=== PATIENT | female | born 1960 | race Caucasian/White ===

== ENCOUNTER 2017-03-24 14:34 | Inpatient (IN) | payer OTHER ==
[2017-03-24] MEDS ORDERED: Acetaminophen 500 MG Tab PO PRN (14:56)
[2017-03-24] MEDS ORDERED: Loratadine 10 MG Tab PO PRN (14:56)
[2017-03-24] MEDS ORDERED: Lactated Ringers 1,000 ML IV SCH (15:00)
[2017-03-24] MEDS ORDERED: Acetaminophen 650 MG Supp RECTAL PRN (15:18)
[2017-03-24] MEDS ORDERED: Ondansetron 4 MG/2 ML SDV IV PRN (15:18)
[2017-03-24] MEDS ORDERED: Metoclopramide 10 MG/2 ML SDV IV PRN (15:19)
[2017-03-24] MEDS ORDERED: Naloxone 0.4 MG/ML SDV IV PRN (15:25)
[2017-03-24] MEDS ORDERED: HYDROmorphone/Normal Saline 15 MG/30 ML PCA IV PRN (15:25)
--- NOTE | 2017-03-24 15:57 | PCM.HP ---
H&P History of Present Illness - General Date of Service: 03/24/17 Admit Problem/Dx: Admission Diagnosis/Problem Admission Diagnosis/Problem Partial bowel obstruction Source of Information: Patient - History of Present Illness Initial Comments - Free Text/Narative: Maricruz has had a 2 week history of pain after eating in her left upper quadrant that radiates to left upper back and then throughout the entire abdomen.S She states she eats then will develop pain, nausea, vomiting and diarrhea. The symptoms last for several hours then let up. Maricruz states that she is getting weak and tired. Location: Reports: Abdomen Quality: Reports: Pressure, Sharp, Stabbing, Throbbing Severity: Severe Improves with: Reports: None Worsens with: Reports: Eating Context: Reports: Sick Contact Associated Symptoms: Reports: Loss of Appetite, Malaise, Nausea/Vomiting - Related Data Allergies/Adverse Reactions: Allergies Allergy/AdvReac Type Severity Reaction Status Date / Time No Known Allergies Allergy Verified 10/17/14 08:22 Home Medications: Home Meds Acetaminophen [Tylenol Extra Strength] 500 - 1,000 mg PO Q6H PRN 10/13/14 [ History] Cholecalciferol (Vitamin D3) [Vitamin D3] 2,000 units CHEW DAILY 10/13/14 [ History] Cyanocobalamin (Vitamin B12) [Vitamin B12] 2,500 mcg SL DAILY 10/13/14 [History] Multivitamin [Multiple Vitamins] 1 tab PO DAILY 10/13/14 [History] Acarbose 25 mg PO TID 03/24/17 [History] Past Medical History Other Respiratory History: lung infection Social & Family History - Tobacco Use Smoking Status *Q: Never Smoker Second Hand Smoke Exposure: No - Caffeine Use Caffeine Use: Reports: Coffee Other Caffeine Use: 1 cup per day - Recreational Drug Use Recreational Drug Use: No H&P Review of Systems - Review of Systems: Review Of Systems: See Below General: Reports: Malaise, Weakness, Fatigue, Decreased Appetite, Weight Loss HEENT: Reports: No Symptoms Pulmonary: Reports: No Symptoms Cardiovascular: Reports: No Symptoms Gastrointestinal: Reports: Abdominal Pain, Diarrhea, Decreased Appetite, Distension, Flatus, Nausea, Vomiting Genitourinary: Reports: No Symptoms Musculoskeletal: Reports: No Symptoms Skin: Reports: No Symptoms Psychiatric: Reports: No Symptoms Neurological: Reports: No Symptoms Hematologic/Lymphatic: Reports: No Symptoms Immunologic: Reports: No Symptoms Exam - Exam Exam: See Below - Vital Signs Vital Signs: Last Vital Signs Temp 95.7 F 03/24/17 15:13 Pulse 53 L 03/24/17 15:13 Resp 14 03/24/17 15:13 BP 151/83 H 03/24/17 15:13 Pulse Ox 100 03/24/17 15:13 Weight: 166 lb - Exam Quality Assessment: DVT Prophylaxis General: Alert, Oriented, Moderate Distress, Other (Color pale) HEENT: PERRLA Neck: Supple, Trachea Midline Lungs: Clear to Auscultation, Normal Respiratory Effort Cardiovascular: Regular Rate, Regular Rhythm GI/Abdominal Exam: Distended, Tender (generalized in all 4 quadrants ) (Female) Exam: Deferred Rectal (Female) Exam: Deferred Back Exam: Normal Inspection, Full Range of Motion Extremities: Normal Inspection, Normal Range of Motion Skin: Warm, Dry, Intact Neurological: Cranial Nerves Intact, Reflexes Equal Bilateral Neuro Extensive - Mental Status: Alert, Oriented x3, Normal Mood/Affect Neuro Extensive - Motor, Sensory, Reflexes: CN II-XII Intact, Normal Gait, Normal Reflexes Psychiatric: Alert *Q Meaningful Use (ADM) - VTE *Q VTE Criteria *Q: - Stroke *Q Stroke Criteria *Q: - AMI *Q AMI Criteria *Q: - Problem List (1) Partial small bowel obstruction SNOMED Code(s): 194938242 ICD Code: K56.600 - PARTIAL INTESTINAL OBSTRUCTION, UNSPECIFIED TO CAUSE Status: Acute Current Visit: Yes Problem List Initiated/Reviewed/Updated: Yes Orders Last 24hrs: Active Orders 24 hr Category Date Time Status Admission Status [Patient Status] [ADT] Routine ADT 03/24/17 14:10 Active Intake and Output [RC] QSHIFT Care 03/24/17 15:34 Active Overnight Pulse Oximetry [RC] Click to Edit Care 03/24/17 14:48 Active Up ad Carla [RC] ASDIRECTED Care 03/24/17 15:30 Active Verify Patient Consent Obtain [RC] ASDIRECTED Care 03/25/17 09:00 Active Vital Signs [RC] Q4H Care 03/24/17 15:30 Active Clear Liquid Diet [DIET] Diet 03/24/17 Dinner Active NPO After Midnight [Nothing per Oral After Midnight Diet 03/24/17 Dinner Active Diet] [DIET] AMYLASE [CHEM] Routine Lab 03/24/17 15:34 Ordered CBC W/O DIFF,HEMOGRAM [HEME] Routine Lab 03/24/17 15:30 Ordered CLOSTRIDIUM DIFFICILE BY PCR [RM] Routine Lab 03/24/17 15:35 Uncollected COMPREHENSIVE METABOLIC PN,CMP [CHEM] Routine Lab 03/24/17 15:31 Ordered FERRITIN [CHEM] Routine Lab 03/24/17 15:32 Ordered FOLATE [FOLIC ACID] [CHEM] Routine Lab 03/24/17 15:32 Ordered LIPASE [CHEM] Routine Lab 03/24/17 15:34 Ordered MAGNESIUM [CHEM] Routine Lab 03/24/17 15:31 Ordered PHOSPHORUS [CHEM] Routine Lab 03/24/17 15:31 Ordered VITAMIN B-1, THIAMINE, PLASMA [REF] Routine Lab 03/24/17 15:33 Ordered VITAMIN B12 [CHEM] Routine Lab 03/24/17 15:31 Ordered VITAMIN D,25-HYDROXY [CHEM] Routine Lab 03/24/17 15:32 Ordered Acetaminophen [Tylenol Extra Strength] Med 03/24/17 14:56 Active 500 - 1,000 mg PO Q6H PRN Acetaminophen [Tylenol] Med 03/24/17 15:18 Active 650 mg RECTAL Q4H PRN Dextrose 5%-Lactated Ringers 1,000 ml Med 03/24/17 21:30 Active IV ASDIRECTED Escitalopram [Lexapro] Med 03/25/17 09:00 Active 20 mg PO DAILY HYDROmorphone/Normal Saline [Dilaudid ALL PURPOSE CLERK 15 MG in NS Med 03/24/17 15:25 Active 30 ML] 0 mg IV ASDIRECTED PRN Lactated Ringers [Ringers, Lactated] 1,000 ml Med 03/24/17 15:00 Active IV ASDIRECTED Loratadine [Claritin] Med 03/24/17 14:56 Active 10 mg PO DAILY PRN MVI, Adult with Vitamin K [Infuvite Adult] 10 ml Med 03/24/17 16:00 Active Thiamine [Vitamin B-1] 100 mg Magnesium Sulfate [Magnesium Sulfate 50%] 2 gm Folic Acid 1 mg Lactated Ringers [Ringers, Lactated] 1,000 ml IV ONETIME Metoclopramide [Reglan] Med 03/24/17 15:19 Active 10 mg IV Q6H PRN Naloxone [Narcan] Med 03/24/17 15:25 Active 0.1 mg IV ASDIRECTED PRN Ondansetron [Zofran] Med 03/24/17 15:18 Active 4 mg IV Q4H PRN Pantoprazole [ProTONIX IV] Med 03/24/17 16:00 Active 40 mg IV Q12H cefOXitin [Mefoxin] 2 gm Med 03/25/17 10:00 Active Sodium Chloride 0.9% [Normal Saline] 50 ml IV ONCALL Pulse Oximetry Continuous Monitoring [OM.PC] Routine Oth 03/24/17 14:48 Ordered SCD [Sequential Compression Device] [OM.PC] Routine Oth 03/24/17 15:34 Ordered Code Status [Resuscitation Status] Routine Resus Stat 03/24/17 15:29 Ordered Medication Orders Acetaminophen (Tylenol Extra Strength) 500 - 1,000 mg PO Q6H PRN PRN Reason: Pain Acetaminophen (Tylenol) 650 mg RECTAL Q4H PRN PRN Reason: PAIN/FEVER Escitalopram Oxalate (Lexapro) 20 mg PO DAILY [facility] Hydromorphone HCl (Dilaudid Dehydrogenation Operator 15 Mg In Ns 30 Ml) 0 mg IV ASDIRECTED PRN; Protocol PRN Reason: ALL PURPOSE CLERK PAIN CONTROL Last Admin: 03/24/17 15:42 Dose: 15 mg Lactated Ringer's (Ringers, Lactated) 1,000 mls @ 500 mls/hr IV ASDIRECTED AMOR Stop: 03/24/17 16:59 Last Admin: 03/24/17 15:39 Dose: 500 mls/hr Multivitamins/Minerals 10 ml/Thiamine HCl 100 mg/ Magnesium Sulfate 2 gm/ Folic Acid 1 mg / Lactated Ringer's 1,015.2 mls @ 200 mls/hr IV ONETIME ONE Stop: 03/24/17 21:04 Dextrose/Lactated Ringer's (Dextrose 5%-Lactated Ringers) 1,000 mls @ 150 mls/ hr IV ASDIRECTED [facility] Cefoxitin Sodium 2 gm/ Sodium (Chloride) 50 mls @ 100 mls/hr IV ONCALL ONE Stop: 03/25/17 10:29 Loratadine (Claritin) 10 mg PO DAILY PRN PRN Reason: Allergies Metoclopramide HCl (Reglan) 10 mg IV Q6H PRN PRN Reason: N/V Naloxone HCl (Narcan) 0.1 mg IV ASDIRECTED PRN PRN Reason: decreased respiratory rate Ondansetron HCl (Zofran) 4 mg IV Q4H PRN PRN Reason: N/V Pantoprazole Sodium (Protonix Iv) 40 mg IV Q12H AMOR Assessment/Plan Comment:: Assessment: Partial Small Bowel Obstruction Dehydration RNY Gastric Bypass Surgery - Removal of Lap Band and Conversion to RNY - 01/26/15 Postsurgical malabsorption Vitamin B12 Deficiency Vitamin D Deficiency Depression Reactive Hypoglycemia following Gastric Bypass Surgery Plan: Admit to Inpatient Schedule and have consent signed for Exploratory Laparoscopic possible open release of partial small bowel obstruction and possible lysis of adhesions and possible small bowel resection - 03/25/17 - General Anesthesia - Issa Zarco MD Cefoxitin 2 Grams IV OnCall to OR NPO after MN See EMR for the rest of the orders. Elisa Evans 03/24/17
[2017-03-24] MEDS: MVI, Adult with Vitamin K 10 ML, Thiamine 100 MG, Magnesium Sulfate 2 GM, Folic Acid 1 ... IV ONE ×10 (16:02→17:33)
[2017-03-24] MEDS: Pantoprazole 40 MG Vial IV SCH (16:05)
[2017-03-24] MEDS: Potassium Chloride 20 MEQ in Premix Bag 1 BAG IV SCH ×2 (19:54→22:36)
[2017-03-25] MEDS: Pantoprazole 40 MG Vial IV SCH ×2 (03:44→16:05)
[2017-03-25] MEDS: Escitalopram 20 MG Tab PO SCH (09:55)
[2017-03-25] MEDS ORDERED: cefOXitin 2 GM in Sodium Chloride 0.9% 50 ML IV ONE (10:00)
[2017-03-25] MEDS ORDERED: Dexamethasone 4 MG/ML SDV ONE (10:39)
[2017-03-25] MEDS ORDERED: fentaNYL 250 MCG/5 ML SDV ONE ×2 (10:39→14:30)
[2017-03-25] MEDS ORDERED: Ondansetron 4 MG/2 ML SDV ONE (10:39)
[2017-03-25] MEDS ORDERED: Neostigmine Methylsulfate 1 MG/ML 5 ML Syringe ONE (10:39)
[2017-03-25] MEDS ORDERED: Rocuronium 50 MG/5 ML Vial ONE (10:39)
[2017-03-25] MEDS ORDERED: Succinylcholine/Normal Saline 200 MG/10 ML Syringe ONE (10:39)
[2017-03-25] MEDS ORDERED: Propofol 200 MG/20 ML SDV ONE (10:39)
[2017-03-25] MEDS ORDERED: Bupivacaine 0.5%/EPINEPHrine 1:200,000 50 ML MDV ONE (10:42)
[2017-03-25] MEDS: Dextrose 5%-Lactated Ringers 1,000 ML IV SCH ×2 (11:26→17:07)
[2017-03-25] MEDS ORDERED: Lactated Ringers 1,000 ML ONE (13:31)
[2017-03-25] MEDS ORDERED: Ropivacaine 38 ML, Dexamethasone 8 MG, EPINEPHrine 0.4 MG, Sodium Chloride 0.9% 39.6 ML NERVRT SCH ×4 (14:00)
[2017-03-25] MEDS ORDERED: HYDROmorphone 2 MG Tab PO PRN (15:57)
[2017-03-25] MEDS ORDERED: Meperidine PF 100 MG/ML Syringe IM ONE (16:00)
[2017-03-25] MEDS ORDERED: hydrOXYzine HCl 100 MG/2 ML SDV IM ONE (16:00)
--- NOTE | 2017-03-25 16:46 | PN ---
DATE OF SERVICE: 03/25/2017 The patient was admitted overnight with a small bowel volvulus as seen on CT scan done on the . Since that time, she has been having pain when eating. When she is not eating, she does okay and was felt comfortable this morning. Plan will be to proceed with a diagnostic laparoscopy, laparotomy if necessary, and reduction of the volvulus and closure of any mesenteric defects that might be identified. She will possibly need for an open procedure as well as possibly need for bowel resection, and wishes to proceed. Surgery will be undertaken later today. Issa Zarco MD /[id number]
[2017-03-25] MEDS: Acetaminophen 500 MG Tab PO SCH ×2 (17:11→23:00)
[2017-03-25] MEDS: cefOXitin 2 GM in Sodium Chloride 0.9% 50 ML IV SCH (19:59)
[2017-03-26] MEDS: Dextrose 5%-Lactated Ringers 1,000 ML IV SCH ×3 (00:25→18:54)
[2017-03-26] MEDS: Pantoprazole 40 MG Vial IV SCH ×2 (02:59→16:32)
[2017-03-26] MEDS: Acetaminophen 500 MG Tab PO SCH (02:59)
[2017-03-26] MEDS: cefOXitin 2 GM in Sodium Chloride 0.9% 50 ML IV SCH ×2 (02:59→08:15)
[2017-03-26] MEDS: Escitalopram 20 MG Tab PO SCH (08:06)
[2017-03-26] MEDS ORDERED: Acetaminophen 160 MG Tab,Disintegrating PO SCH (10:00)
[2017-03-26] MEDS: Acetaminophen/oxyCODONE 325-5 MG Tab PO PRN ×2 (11:14→20:08)
--- NOTE | 2017-03-26 11:50 | PN ---
DATE OF SERVICE: 03/26/2017 SUBJECTIVE: Maricruz is postop day one. Her vital signs have been stable. Pain has been controlled. She has been up ambulating. REVIEW OF SYSTEMS: Remainder of review of systems negative for any pertinent positives and negatives. OBJECTIVE: GENERAL: Maricruz Byrnes is a pleasant 56-year-old female. VITAL SIGNS: Height is 5 feet 8.9 inches, weight is 165 pounds. TPR is 97.2, 47, 16, blood pressure 142/70. HEENT: Negative. NECK: Supple. HEART: Regular rate and rhythm. LUNGS: Clear. ABDOMEN: Dressings dry and intact. Abdominal binder is on. EXTREMITIES: Without peripheral edema. ASSESSMENT: Diagnostic laparoscopy with reduction of small bowel volvulus and closure of internal hernia and resection of small bowel at the PD limb stump for small bowel volvulus at the mesenteric defect underlying jejunostomy junction and distortion at the JJ by mesenteric traction on the biliary pancreatic limb stump. Date of surgery, 03/25/2017. PLAN: 1. Discontinue Haines catheter. 2. Discontinue APPLICATION PERFORMANCE ENGINEER. 3. Discontinue continuous pulse ox. 4. Accu-Cheks q.i.d. 5. Percocet 5/325 mg 1 to 2 every 4 hours p.r.n. pain. 6. Restart acarbose for reactive hypoglycemia. 7. Dressing off, june shower. 8. Lexapro was discontinued as she has not been taking that, which was on her home medications. 9. Good pulmonary toilet. 10.We will evaluate p.r.n. or in a.m. Elisa Newsome PA-C /[id number]
[2017-03-27] MEDS: Acetaminophen/oxyCODONE 325-5 MG Tab PO PRN ×3 (04:31→13:08)
[2017-03-27] MEDS: Dextrose 5%-Lactated Ringers 1,000 ML IV SCH (05:00)
[2017-03-27] MEDS ORDERED: Pantoprazole 40 MG Delayed-Release Granules 1 Packet PO SCH ×2 (07:30)
[2017-03-27 11:33] VITALS: BP 143/78
[2017-03-27] MEDS ORDERED: Magnesium Hydroxide 400 MG/5 ML Susp 30 ML Cup PO ONE (14:00)
--- NOTE | 2017-03-28 09:06 | DISCH ---
ADMISSION DIAGNOSES: 1. Partial small bowel obstruction, volvulus. 2. Status post Meredith-en-Y gastric bypass surgery. 3. Unspecified surgical malabsorption. 4. B12 deficiency. 5. Depression. DISCHARGE DIAGNOSES: Diagnostic laparoscopy with reduction of small bowel volvulus and closure of internal hernia, and resection of small bowel at the PD limb stump for small bowel volvulus at the mesenteric defect underlining jejunostomy junction and distortion of the JJ by mesenteric traction on the biliary pancreatic limb stump. Date of surgery, 03/25/2017. Surgeon, Issa Zarco MD. HISTORY: Maricruz Byrnes is status post Meredith-en-Y gastric bypass surgery. She presented to the clinic with a 2-week history of severe postprandial abdominal pain. CT revealed mesenteric swirling suggestive of a partial small bowel obstruction. Maricruz was admitted to [facility] on 03/24/2017 for IV fluids and pain management. On 03/25/2017, she had a surgical procedure. She had no operative complications. On postop day #1, she was started on a bariatric step-4 gastric bypass diet. CORPORATE COMPLIANCE OFFICER was discontinued and was started on oral Percocet. On postop day #3, her activity was good. Pain was well managed. Oral intake was adequate. She was able to be discharged to home. PHYSICAL EXAMINATION: GENERAL: Maricruz Byrnes is a pleasant 56-year-old female. VITAL SIGNS: Height is 5 feet 8.9 inches. Weight is 165 pounds. TPR 97, 148, 18, and blood pressure 138/73. HEENT: Negative. NECK: Supple. HEART: Regular rate and rhythm. LUNGS: Clear. ABDOMEN: Incisions look good. Sutures in place. Abdominal binder is on. EXTREMITIES: Without peripheral edema. DISPOSITION: Discharged to home. CONDITION: Stable and improving. FOLLOWUP APPOINTMENT: With Elisa Newsome PA-C, on 04/04/2017, at 10 a.m. DISCHARGE MEDICATIONS: Home Medications: 1. Percocet 5/325 mg 1 to 2 tabs every 4 hours p.r.n. pain, #40. 2. Milk of magnesia 30 mL p.o. daily, take 1 daily for constipation. Two were sent home with the patient. 3. She is to resume her home medication. DIET: Usual diet as tolerated. Step-4 gastric bypass diet. Drink 8 to 10 glasses of water a day. ACTIVITY: No lifting greater than 10 pounds. Driving, do not drive while on pain medication. Shower/bathing, may shower. Keep operative site clean and dry. Wear abdominal binder for 2 weeks and then as tolerated. DISCHARGE INSTRUCTIONS: Notify provider if any fever, increased pain, swelling, redness, nausea or vomiting. Special instruction; use incentive spirometer 10 times every hour while awake for 2 weeks.
--- NOTE | 2017-04-03 14:20 | OR ---
DATE OF PROCEDURE: 03/25/2017 PREOPERATIVE DIAGNOSIS: Small bowel volvulus. POSTOPERATIVE DIAGNOSES: 1. Small bowel volvulus at mesenteric defect underlying jejunojejunostomy. 2. 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 OPERATIVE PROCEDURE: Diagnostic laparoscopy with: 1. Reduction of small bowel volvulus and closure of internal hernia (63848). 2. Resection of small bowel biliopancreatic limb stump (31404). ANESTHESIA: General. BALER: Gia Verduzco MS-3. INDICATION FOR PROCEDURE: This is a 56-year-old status post Meredith-en-Y gastric bypass presenting with several weeks history of postprandial abdominal pain. CT scan was consistent with small bowel volvulus. The patient was admitted for hydration and sent to do a laparoscopy, laparotomy if necessary, and correction of the problem. Potential risks of the procedure including bleeding, infection, injury to underlying viscera, problem recurring over time as well as remote possibility of cardiopulmonary, septic, or hemorrhagic complications leading to were discussed, and the patient wishes to proceed. DETAILS OF PROCEDURE: The patient was taken to the operating room and placed in a supine position. After general endotracheal anesthesia was induced, the patient was converted to lithotomy position and the abdomen prepped and draped. A transverse incision was then made in the left lower quadrant. Peritoneal cavity entered under direct vision with an Optiview trocar, inflated to 15 mmHg pressure with CO2. Bilateral mid abdominal transversus abdominis plane blocks were then placed using standard solution with direct visualization of the needle tip being in the correct plane. Following this eventually, three additional trocars were placed across the upper mid abdomen and the area of the Meredith limb was initially identified, traced downward and became evident this involved the volvulus. Attention was then taken to the ileocecal valve and the volvulus was then sequentially reduced by pulling the bowel in the right monterroso direction actually completely reducing the entire process. The bowel prior to reduction was somewhat dusky consistent with some venous stasis, but otherwise appeared to be viable and became pink and completely normal-appearing after reduction. The defect through which the volvulus occurred was underlying the region of the jejunojejunostomy mesentery. These were closed with several [id number] stitches of 0 Vicryl stitch. The position of the anastomosis still appeared to be somewhat distorted by traction of the biliopancreatic limb stumps mesentery. Given this, the biliopancreatic limb stump was then resected with a CIARA reese load and the underlying mesentery divided with Harmonic scalpel. This resulted in a much more satisfactory orientation of anastomosis. At that point, no further problems were noted. Trocars were removed. The peritoneal cavity deflated. Incisions were closed with 4-0 Vicryl stitch and the patient was taken to the recovery room in satisfactory condition. Issa Zarco MD /[id number]
== END 2017-03-27 14:45 | disposition home or self-care (01) | DRG 345 ==
LOC: UNDOADMIN 14:34 → JP.MS 14:34 → JP.2SS 03-25 14:05
PROVIDERS: ADMIT Surgery; ATTEND Surgery
PROC: 0DSA4ZZ Reposition Jejunum, Percutaneous Endoscopic Approach (ICD-10-PCS; principal; 2017-03-25)
PROC: 0WQF4ZZ Repair Abdominal Wall, Percutaneous Endoscopic Approach (ICD-10-PCS; 2017-03-25)
PROC: 0DB94ZX Excision of Duodenum, Percutaneous Endoscopic Approach, Diagnostic (ICD-10-PCS; 2017-03-25)
PROC: 3E0T3BZ Introduction of Anesthetic Agent into Peripheral Nerves and Plexi, Percutaneous Approach (ICD-10-PCS; 2017-03-25)
DX: K56.2 Volvulus (principal); K91.2 Postsurgical malabsorption, not elsewhere classified; E86.0 Dehydration; E53.8 Deficiency of other specified B group vitamins; E55.9 Vitamin D deficiency, unspecified; Z98.84 Bariatric surgery status; Z98.0 Intestinal bypass and anastomosis status; E16.1 Other hypoglycemia; K46.9 Unspecified abdominal hernia without obstruction or gangrene
CPT/HCPCS: 36415; 80053; 82150; 82306; 82607; 82728; 82746; 82962; 83690; 83735; 84100; 84425; 85027; 88305; 94762; A9270-GY; C9113; J0171; J0694; J1100; J1170; J2175; J2405; J2704; J2795; J3010; J3410; J3411; J3475; J3480; J3490; J7042; J7050; J7120